=== PATIENT | male | born 1965 | race Caucasian/White ===

== ENCOUNTER → 2018-05-10 07:13 | Outpatient (CLI) | payer OTHER, SELFPAY ==
[2018-05-10 08:58] LABS: Add Manual Diff / Slide Review NO; Basophils Percent Auto 0.8 % (0-2); Eosinophils Percent Auto 4.8 % (2-4); Hemoglobin 14.8 g/dL (13.5-17.5); Lymphocytes Percent Auto 34.7 % (25-40); Mean Corpuscular HGB Conc 35.2 % (30-36); Mean Corpuscular Hemoglobin 34.3 PG (26-34); Mean Corpuscular Volume 97.7 fL (80-100); Monocytes Percent Auto 8.7 % (3-14); Neutrophils Absolute Auto 2800 /uL (3000-5900); Platelet Count 235 X10^3/uL (150-400); Red Cell Distribution Width 12.6 % (11.6-14.8); White Blood Cell Count 5.5 X10^3/uL (4.5-11.0)
[2018-05-10 09:44] LABS: Alanine Aminotransferase 39 IU/L (21-72); Albumin 4.1 g/dL (3.5-5.0); Albumin Globulin Ratio 1.6 (1.0-2.8); Alkaline Phosphatase 72 U/L (38-126); Aspartate Aminotransferase 26 IU/L (17-59); BUN Creatinine Ratio 15.7 (6-22); Bilirubin Total 0.6 mg/dL (0.2-1.3); Blood Urea Nitrogen 11 mg/dL (9-20); Calcium 9.1 mg/dL (8.4-10.2); Carbon Dioxide 29 mmol/L (22-32); Chloride 104 mmol/L (98-107); Cholesterol 199 mg/dL (140-199); Estimated Glomerular Filt Rate > 60.0 mL/min (>60); Globulin 2.5 g/dL (1.7-4.1); Glucose 95 mg/dL (70-100); HDL Cholesterol 39 mg/dL (40-60); HEMOLYSIS < 15 (0-50); LDL Cholesterol Calculated 110 mg/dL (<100); Potassium 4.5 mmol/L (3.4-5.1); Sodium 143 mmol/L (137-145); Total Protein 6.6 g/dL (6.3-8.2); Triglycerides 249 mg/dL (35-150)
[2018-05-10 10:06] LABS: TSH w/ Reflex to FT4 9.35 uIU/mL (0.47-4.68)
[2018-05-10 10:11] LABS: Prostate Specific Antigen 0.967 ng/mL (0.10-4.00)
[2018-05-10 10:31] LABS: Free T4, Direct Thyroxine 1.27 ng/dL (0.78-2.19)
== END ==
PROVIDERS: Family Provider Family Medicine; PCP Family Medicine; Visit Provider Family Medicine
DX: E03.9 Hypothyroidism, unspecified (principal); E78.5 Hyperlipidemia, unspecified; G40.909 Epilepsy, unspecified, not intractable, without status epilepticus; Z12.5 Encounter for screening for malignant neoplasm of prostate
CPT/HCPCS: 36415; 80053; 80061; 84153; 84439; 84443; 85025

== ENCOUNTER → 2019-09-25 08:22 | Outpatient (CLI) | payer OTHER, SELFPAY ==
[2019-09-25 08:57] LABS: Hematocrit 39.6 % (41-53); Hemoglobin 13.5 g/dL (13.5-17.5); Mean Corpuscular HGB Conc 34.2 % (30-36); Mean Corpuscular Hemoglobin 33.9 PG (26-34); Platelet Count 224 X10^3/uL (150-400); Red Blood Cell Count 3.99 X10^6/uL (4.5-5.9); Red Cell Distribution Width 12.4 % (11.6-14.8); White Blood Cell Count 4.2 X10^3/uL (4.5-11.0)
[2019-09-25 09:08] LABS: Alanine Aminotransferase 30 IU/L (<50); Albumin 4.4 g/dL (3.5-5.0); Albumin Globulin Ratio 1.7 (1.0-2.8); Alkaline Phosphatase 73 U/L (38-126); Aspartate Aminotransferase 30 IU/L (17-59); BUN Creatinine Ratio 18.6 (6-22); Bilirubin Total 0.4 mg/dL (0.2-1.3); Blood Urea Nitrogen 13 mg/dL (9-20); Calcium 9.3 mg/dL (8.4-10.2); Carbon Dioxide 27 mmol/L (22-32); Chloride 106 mmol/L (98-107); Cholesterol 216 mg/dL (140-199); Estimated Glomerular Filt Rate > 60.0 mL/min (>60); Globulin 2.6 g/dL (1.7-4.1); Glucose 106 mg/dL (70-100); HDL Cholesterol 44 mg/dL (40-60); HEMOLYSIS < 15 (0-50); LDL Cholesterol Calculated 152 mg/dL (<100); Potassium 4.3 mmol/L (3.4-5.1); Sodium 140 mmol/L (137-145); Triglycerides 101 mg/dL (35-150)
[2019-09-25 10:05] LABS: Free T4, Direct Thyroxine 0.89 ng/dL (0.78-2.19)
[2019-09-25 10:12] LABS: Neutrophils Absolute Manual 2058 /uL (3000-5900); Nucleated Red Blood Cells 1 #/Diff; RBC Morphology Normal Morphology; Total Cells Counted 100
== END ==
PROVIDERS: Family Provider Family Medicine; PCP Family Medicine; Referring Provider Family Medicine; Visit Provider Family Medicine
DX: E03.9 Hypothyroidism, unspecified (principal); G40.909 Epilepsy, unspecified, not intractable, without status epilepticus
CPT/HCPCS: 36415; 80053; 80061; 84439; 84443; 85025

== ENCOUNTER → 2020-01-14 11:04 | Outpatient (CLI) | payer OTHER, SELFPAY ==
--- NOTE | 2020-01-14 11:07 | DI.RAD.S_ITS ---
PROCEDURE: XR SHOULDER LT MIN 2V INDICATIONS: left shoulder impigment TECHNIQUE: 3 views of the shoulder were acquired. COMPARISON: [facility], , SHOULDER MINIMUM 2VIEW RIGHT, 07/02/2011, 13:08. FINDINGS: Bones: No fractures or dislocations. No suspicious bony lesions. Visualized ribs appear intact. Soft tissues: No suspicious soft tissue calcifications. IMPRESSION: No acute radiographic findings. No findings to suggest subluxation of the humerus. However, if further characterization is warranted, MRI is recommended. Dictated by: Glenna Palacios M.D. on 01/14/2020 at 12:09 Approved by: Glenna Palacios M.D. on 01/14/2020 at 12:09
== END ==
PROVIDERS: Family Provider Family Medicine; PCP Family Medicine; Referring Provider Family Medicine; Visit Provider Family Medicine
DX: M25.812 Other specified joint disorders, left shoulder (principal); M25.512 Pain in left shoulder
CPT/HCPCS: 73030

== ENCOUNTER → 2020-09-17 09:05 | Outpatient (CLI) | payer OTHER, SELFPAY ==
[2020-09-17 11:27] LABS: COVID19 -Nasal RAPID Negative (Negative)
== END ==
PROVIDERS: Family Provider Family Medicine; PCP Family Medicine; Visit Provider Specialist
DX: Z20.822 Contact with and (suspected) exposure to COVID-19 (principal)
CPT/HCPCS: 87635; C9803

== ENCOUNTER 2020-09-18 07:31 | Day surgery (SDC) | payer OTHER, SELFPAY ==
[2020-09-18] VITALS (11 sets, daily range): BP systolic 107–127; BP diastolic 58–81; PULSE 56–57; RESP 8–17; TEMP 36.3–36.7; O2SAT 94–97; BMI 30.1
--- NOTE | 2020-09-18 | PATH_ITS ---
[facility] Accession Number: [id number] . 01 Material submitted: . body - POLYP AT 50CM . 02 Diagnosis: Colon, Polyp at 50 cm, Biopsy: Hyperplastic polyp. [facility] 09/22/2020 1702 Local . 02 Electronically signed: . Sammie Wesley MD, Pathologist NPI- [id number] . 01 Gross description: . POLYP AT 50CM: Received in formalin is 1 fragment(s) of jc, soft tissue measuring 0.3 x 0.3 x 0.1 cm submitted entirely in 1 cassette(s) /QBJ 09/20/2020 0924 Local . 02 Pathologist provided ICD-10: K63.5 . 02 CPT . 884848 Performed at: 01 [facility] [address] [facility], [place], [place] [id number] MD Geovany Hogan MD Phone: [phone] Performed at: 02 [facility] [address] [place], [place] [id number] MD Sammie Wesley MD Phone: [phone]
[2020-09-18] MEDS: fentaNYL 250 MCG/5 ML INJ IV (08:20)
[2020-09-18] MEDS: MIDAZOLAM 5 MG/5 ML VIAL IV (08:21)
--- NOTE | 2020-09-18 08:24 | P.HP_ITS ---
History of Present Illness History of Present Illness Date Patient Seen: 09/18/20 Time Patient Seen: 08:25 Chief complaint: SD Narrative: Patient is a gentleman here for a screening colonoscopy. A colonoscopy about 8 years ago for rectal bleeding. No cause was found. He is here for screening examination. Patient History Medical History Chicken pox (~1973) Hypothyroidism Seizure Surgical History Anesthesia History of vasectomy Status post tonsillectomy and adenoidectomy Family & Social History Family History Father Cancer Heart disease Mother Carcinoma in situ, breast, ductal High cholesterol Social History: household members spouse Tobacco & Substance use: Smoking Status Never smoker alcohol intake never Substance Use Type does not use Meds Home Medications and Allergies Home Medications Medication Instructions Recorded Confirmed Type cetirizine 10 mg PO PRN #0 06/29/11 01/14/20 History albuterol sulfate 90 mcg/actuation 1 puff INHALATION Q4HP PRN #1 inh 09/26/19 01/14/20 Rx aerosol inhaler lamotrigine 100 mg tablet 200 mg PO BID #120 tab 06/06/20 09/18/20 Rx levothyroxine 125 mcg tablet 125 mcg PO DAILY #90 tab 08/11/20 09/18/20 Rx Allergies Allergy/AdvReac Type Severity Reaction Status Date / Time No Known Drug Allergies Allergy Verified 09/18/20 07:43 Review of Systems Review of Systems ROS: Yes All systems reviewed with the patient and are negative except as other cleary documented Exam Vital Signs (past 8 hours): - 09/18/20 07:47 Temperature 97.3 F L Pulse Rate 56 L Respiratory Rate 17 Blood Pressure 127/73 Pulse Oximetry 96 Oxygen Delivery Method Room Air Narrative Exam Narrative: Pleasant cooperative patient no apparent distress. Lungs are clear to auscultation. No rales or rhonchi. Heart regular rate and rhythm no murmur gallop. Abdomen is soft nontender without mass. No obvious hernias. Patient is alert and oriented x3. Assessment & Plan Assessment & Plan narrative: The patient for a screening colonoscopy. I have discussed the procedure with them. Risks of bleeding, perforation which would necessitate major operation, failure to find remove all lesions, the potential tattoo were all discussed. All questions were answered. They wished to proceed.
--- NOTE | 2020-09-18 08:27 | PM.PREOP ---
Pre-operative Note COVID-19 COVID-19 status: Negative Result date/Date tested (Pos, Neg/Pending): 09/17/20 Interval Note History & Physical reviewed/Exam performed by Physician: Yes Changes to H&P: No ASA Class (for procedural sedation): II
[2020-09-18] MEDS: LACTATED RINGERS 1,000 ML 200 ML IV (08:33)
--- NOTE | 2020-09-18 09:45 | PM.OP.ENDO ---
Operative Date/Time/Diagnoses Date of procedure: 09/18/20 Time of procedure: 08:40 Pre-op diagnosis: Screening exam. Last exam 8 years ago. Post-op diagnosis: same (Small polyp at 50 cm from the anal verge) Procedure & Clinicians Study performed: Colonoscopy with cold biopsy Same procedure as scheduled: Yes Indications: Screening Surgeon: Yoshi Samano Procedure Notes SCOAP/Timeout: Performed Procedure in detail: The patient was placed in the left lateral decubitus position and underwent IV sedation directed by the surgeon consisting of fentanyl and Versed. Digital exam was unremarkable. The scope was inserted and advanced through the rectum into the sigmoid, descending, transverse, and ascending colon. Pressure was applied a stiffener inserted in order to reach the cecum. The cecum was reached identified by the ileocecal valve and the appendiceal opening. The scope was gradually brought out. One Polyp was found at 50 cm from the anal verge. This was biopsied and removed.. The scope ultimately was retroflexed in the rectum. The appearance was normal however as I brought the scope through the anal verge there was some evidence of hemorrhoids with minor inflammation.. The scope was removed and the patient tolerated the procedure well. The prep was very good Scope withdrawal time: Almost 11 minutes Sedation minutes: 22 Findings: internal hemorrhoids and polyp (One tiny polyp at 50 cm from the anal verge) Specimen(s): other (Polyp) Complications: none Post-procedure Recommendations: Colonscopy in 5 years (If the polyp removed is not adenomatous than 10 years would be more appropriate. We will notify you) Follow up: as needed Disposition: PACU
== END 2020-09-18 09:58 | disposition home or self-care (01) ==
PROVIDERS: Family Provider Family Medicine; PCP Family Medicine; Referring Provider Family Medicine; Visit Provider Specialist
PROC: 0DJD8ZZ Inspection of Lower Intestinal Tract, Via Natural or Artificial Opening Endoscopic (ICD-10-PCS; CPT 45378; principal; 2020-09-18 08:30)
DX: Z12.11 Encounter for screening for malignant neoplasm of colon (principal); K64.0 First degree hemorrhoids; E03.9 Hypothyroidism, unspecified; K63.5 Polyp of colon
CPT/HCPCS: 45380; 99152; J2250; J3010

== ENCOUNTER → 2021-03-20 07:04 | Outpatient (CLI) | payer OTHER, SELFPAY ==
[2021-03-20 09:16] LABS: Add Manual Diff / Slide Review NO; Basophils Absolute Auto 0 /uL (0-100); Basophils Percent Auto 0.8 % (0-2); Eosinophils Absolute Auto 200 /uL (0-450); Eosinophils Percent Auto 4.1 % (2-4); Hemoglobin 13.6 g/dL (13.5-17.5); Lymphocytes Absolute Auto 1500 /uL (1100-4500); Lymphocytes Percent Auto 28.9 % (25-40); Mean Corpuscular HGB Conc 33.9 % (30-36); Mean Corpuscular Hemoglobin 33.3 PG (26-34); Mean Corpuscular Volume 98.3 fL (80-100); Monocytes Absolute Auto 400 /uL (0-900); Neutrophils Absolute Auto 2900 /uL (1500-7000); Neutrophils Percent Auto 58.2 % (50-75); Platelet Count 211 X10^3/uL (150-400); Red Blood Cell Count 4.07 X10^6/uL (4.5-5.9); Red Cell Distribution Width 13.2 % (11.6-14.8); White Blood Cell Count 5.1 X10^3/uL (4.5-11.0)
[2021-03-20 09:32] LABS: Alanine Aminotransferase 31 IU/L (<50); Albumin 4.2 g/dL (3.5-5.0); Albumin Globulin Ratio 1.6 (1.0-2.8); Alkaline Phosphatase 78 U/L (38-126); Aspartate Aminotransferase 37 IU/L (17-59); BUN Creatinine Ratio 18.5 (6-22); Bilirubin Total 0.6 mg/dL (0.2-1.3); Blood Urea Nitrogen 10 mg/dL (9-20); Calcium 9.2 mg/dL (8.4-10.2); Carbon Dioxide 26 mmol/L (22-32); Chloride 106 mmol/L (98-107); Estimated Glomerular Filt Rate > 60.0 mL/min (>60); Globulin 2.6 g/dL (1.7-4.1); Glucose 97 mg/dL (70-100); HEMOLYSIS < 15 (0-50); Potassium 4.1 mmol/L (3.4-5.1); Sodium 139 mmol/L (137-145); Total Protein 6.8 g/dL (6.3-8.2)
[2021-03-20 10:00] LABS: Prostate Specific Antigen 0.917 ng/mL (0.10-4.00)
[2021-03-20 10:04] LABS: TSH w/ Reflex to FT4 7.12 uIU/mL (0.47-4.68)
[2021-03-20 10:32] LABS: Free T4, Direct Thyroxine 1.15 ng/dL (0.78-2.19)
== END ==
PROVIDERS: Family Provider Family Medicine; PCP Family Medicine; Referring Provider Family Medicine; Visit Provider Family Medicine
DX: E03.9 Hypothyroidism, unspecified (principal); G40.909 Epilepsy, unspecified, not intractable, without status epilepticus
CPT/HCPCS: 36415; 80053; 84153; 84439; 84443; 85025

== ENCOUNTER → 2022-03-30 12:25 | Outpatient (CLI) | payer OTHER, SELFPAY | PROVIDERS: Family Provider Family Medicine; PCP Family Medicine; Visit Provider Physician Assistant | DX: Z12.5 Encounter for screening for malignant neoplasm of prostate (principal) | CPT/HCPCS: G0103 ==

== ENCOUNTER → 2022-04-01 10:35 | Outpatient (CLI) | payer OTHER, SELFPAY ==
[2022-04-01 11:42] LABS: Add Manual Diff / Slide Review NO; Basophils Absolute Auto 0 /uL (0-100); Basophils Percent Auto 0.8 % (0-2); Eosinophils Absolute Auto 100 /uL (0-450); Eosinophils Percent Auto 3.1 % (2-4); Hematocrit 38.2 % (41-53); Hemoglobin 13.4 g/dL (13.5-17.5); Lymphocytes Absolute Auto 1300 /uL (1100-4500); Lymphocytes Percent Auto 28.8 % (25-40); Mean Corpuscular Hemoglobin 33.6 PG (26-34); Monocytes Absolute Auto 400 /uL (0-900); Monocytes Percent Auto 9.3 % (3-14); Neutrophils Absolute Auto 2600 /uL (1500-7000); Platelet Count 235 X10^3/uL (150-400); Red Blood Cell Count 3.98 X10^6/uL (4.5-5.9); Red Cell Distribution Width 12.8 % (11.6-14.8); White Blood Cell Count 4.4 X10^3/uL (4.5-11.0)
[2022-04-01 12:10] LABS: Alanine Aminotransferase 24 IU/L (<50); Albumin 4.3 g/dL (3.5-5.0); Albumin Globulin Ratio 1.8 (1.0-2.8); Alkaline Phosphatase 75 U/L (38-126); Aspartate Aminotransferase 30 IU/L (17-59); Bilirubin Total 0.4 mg/dL (0.2-1.3); Blood Urea Nitrogen 16 mg/dL (9-20); Calcium 9.2 mg/dL (8.4-10.2); Carbon Dioxide 29 mmol/L (22-32); Chloride 104 mmol/L (98-107); Estimated Glomerular Filt Rate > 60 mL/min (>60); Globulin 2.4 g/dL (1.7-4.1); Glucose 107 mg/dL (70-100); HEMOLYSIS < 15 (0-50); Potassium 4.6 mmol/L (3.4-5.1); Sodium 138 mmol/L (137-145); Total Protein 6.7 g/dL (6.3-8.2)
[2022-04-01 12:41] LABS: TSH w/ Reflex to FT4 5.07 uIU/mL (0.47-4.68)
[2022-04-01 13:22] LABS: Free T4, Direct Thyroxine 1.51 ng/dL (0.78-2.19)
== END ==
PROVIDERS: Family Provider Family Medicine; PCP Family Medicine; Referring Provider Physician Assistant; Visit Provider Physician Assistant
DX: E03.9 Hypothyroidism, unspecified (principal); G40.909 Epilepsy, unspecified, not intractable, without status epilepticus
CPT/HCPCS: 36415; 80053; 84439; 84443; 85025

== ENCOUNTER → 2023-06-29 08:13 | Outpatient (CLI) | payer OTHER, SELFPAY ==
[2023-06-29 08:59] LABS: Add Manual Diff / Slide Review NO; Basophils Absolute Auto 0 /uL (0-100); Basophils Percent Auto 0.5 % (0-2); Eosinophils Absolute Auto 200 /uL (0-450); Eosinophils Percent Auto 3.6 % (2-4); Hematocrit 39.5 % (41-53); Hemoglobin 13.5 g/dL (13.5-17.5); Lymphocytes Absolute Auto 1300 /uL (1100-4500); Lymphocytes Percent Auto 29.2 % (25-40); Mean Corpuscular HGB Conc 34.3 % (30-36); Mean Corpuscular Volume 96.3 fL (80-100); Monocytes Absolute Auto 400 /uL (0-900); Monocytes Percent Auto 8.4 % (3-14); Neutrophils Absolute Auto 2500 /uL (1500-7000); Neutrophils Percent Auto 58.3 % (50-75); Platelet Count 232 X10^3/uL (150-400); Red Cell Distribution Width 13.9 % (11.6-14.8); White Blood Cell Count 4.3 X10^3/uL (4.5-11.0)
[2023-06-29 09:29] LABS: Alanine Aminotransferase 32 IU/L (<50); Albumin 4.4 g/dL (3.5-5.0); Albumin Globulin Ratio 1.5 (1.0-2.8); Alkaline Phosphatase 76 U/L (38-126); Aspartate Aminotransferase 37 IU/L (17-59); BUN Creatinine Ratio 17.1 (6-22); Bilirubin Total 0.7 mg/dL (0.2-1.3); Blood Urea Nitrogen 12 mg/dL (9-20); Calcium 9.6 mg/dL (8.4-10.2); Carbon Dioxide 28 mmol/L (22-32); Chloride 102 mmol/L (98-107); Cholesterol 239 mg/dL (140-199); Estimated Glomerular Filt Rate > 60 mL/min (>60); Globulin 2.9 g/dL (1.7-4.1); Glucose 104 mg/dL (70-100); HDL Cholesterol 43 mg/dL (40-60); HEMOLYSIS < 15 (0-50); LDL Cholesterol Calculated 176 mg/dL (<100); Potassium 4.4 mmol/L (3.4-5.1); Sodium 137 mmol/L (137-145); Total Protein 7.3 g/dL (6.3-8.2); Triglycerides 101 mg/dL (35-150)
[2023-06-29 10:21] LABS: Free T4, Direct Thyroxine 1.23 ng/dL (0.78-2.19)
== END ==
PROVIDERS: Family Provider Family Medicine; PCP Family Medicine; Referring Provider Physician Assistant; Visit Provider Physician Assistant
DX: G40.909 Epilepsy, unspecified, not intractable, without status epilepticus (principal); E03.9 Hypothyroidism, unspecified; Z12.5 Encounter for screening for malignant neoplasm of prostate; E78.5 Hyperlipidemia, unspecified
CPT/HCPCS: 36415; 80053; 80061; 84439; 84443; 85025

== ENCOUNTER 2023-08-01 06:41 | Day surgery (SDC) | payer OTHER, SELFPAY ==
[2023-08-01 07:10] VITALS: BMI 30.1
[2023-08-01 07:18] VITALS: BP 121/68; PULSE 68; RESP 17; TEMP 36.4; O2SAT 95
[2023-08-01] MEDS: LACTATED RINGERS 1,000 ML 42 ML IV (07:21)
--- NOTE | 2023-08-01 07:43 | P.HP_ITS ---
History of Present Illness History of Present Illness Date Patient Seen: 08/01/23 Time Patient Seen: 07:43 [place] [facility] [place]: H/o colon polyps. Last scope 5 years ago, no new symptoms. No family history of significance. [facility] Medical History Seizure Hypothyroidism Chicken pox (~1973) Surgical History Anesthesia History of vasectomy Status post tonsillectomy and adenoidectomy Family History Father Cancer Heart disease Mother Carcinoma in situ, breast, ductal High cholesterol Social History marital status: household members: spouse Smoking Status: Never smoker alcohol intake: never substance use type: does not use Meds Home Medications and Allergies Home Medications Medication Instructions Recorded Confirmed Type cetirizine 10 mg tablet 10 mg PO PRN ##0 06/29/11 08/01/23 History albuterol sulfate 90 mcg/actuation 1 puff inhalation Q4HP PRN 05/07/21 08/01/23 Rx aerosol inhaler (Proventil HFA) bronchospasm #1 inh lamotrigine 200 mg tablet 200 mg PO BID #180 tabs 10/27/21 08/01/23 Rx levothyroxine 175 mcg tablet 175 mcg PO BEDTIME #45 tabs 06/30/23 08/01/23 Rx Allergies Allergy/AdvReac Type Severity Reaction Status Date / Time No Known Drug Allergies Allergy Verified 08/01/23 07:07 Review of Systems Review of Systems ROS: Yes All systems reviewed with the patient and are negative except as otherwise documented Exam Vital Signs (past 8 hours): - 08/01/23 07:18 Temperature 97.5 F L Pulse Rate 68 Respiratory Rate 17 Blood Pressure 121/68 Pulse Oximetry 95 Oxygen Delivery Method Room Air Oxygen Delivery Method Room Air Const General: cooperative and healthy appearing [facility] Head: normal to inspection, normocephalic and atraumatic Ears: hearing grossly normal bilaterally Eyes General: appearance normal, both eyes and all related structures Neck Neck: normal visual inspection and full ROM Chest Chest: normal inspection of the chest Resp Effort & Inspection: normal respiratory effort and able to speak in complete sentences Cardio Rate: regular rate Rhythm: regular rhythm GI Inspection: normal to inspection Palpation: soft Skin General: elasticity normal and turgor normal Neuro General: patient alert, patient awake and patient oriented x3 Cognition: normal cognition Psych Appearance: grossly normal Mental Status: mental status grossly normal Affect: normal affect Judgment: judgment good Assessment & Plan Assessment & Plan narrative: hx of colon polyps colonoscopy with anesthesia Time Spent With Patient Time with patient: less than 30 minutes
--- NOTE | 2023-08-01 07:49 | PM.OP.COLON ---
Operative Date/Time/Diagnoses Date of procedure: 08/01/23 Time of procedure: 08:03 Pre-op diagnosis: h/o colon polyps Post-op diagnosis: same Procedure & Clinicians Study performed: Colonoscopy Same procedure as scheduled: Yes Indications: History of colon polyps Surgeon: Celia Ryan Procedure Notes Procedure in detail: Preop diagnosis: History of colon polyps Postop diagnosis: Same Operative procedure: Colonoscopy with anesthesia Surgeon: Romana Ryan MD Findings: Normal colonoscopy. No polyps no masses. Procedure: Patient placed in a lateral position. Rectal exam performed showing normal tone no masses. Colonoscope inserted into the rectum and advanced to ileocecal valve with minimal difficulty. Insufflation extraction of the scope and the above findings. Retroflex was included in the rectum and the cecum. Impression: No polyps identified. Plan: Repeat colonoscopy in 5 years Specimen(s): none sent Complications: none Post-procedure Recommendations: Colonoscopy in 5 years Follow up: as needed Disposition: PACU
[2023-08-01 08:07] VITALS: BP 113/70; PULSE 57; RESP 22; TEMP 36.1; O2SAT 95
[2023-08-01 08:12] VITALS: BP 115/66; PULSE 55; RESP 14; O2SAT 98
[2023-08-01 08:16] VITALS: BP 106/69; PULSE 54; RESP 16; TEMP 36; O2SAT 98
[2023-08-01 08:18] VITALS: BP 109/60; PULSE 53; RESP 24; O2SAT 97
== END 2023-08-01 08:33 | disposition home or self-care (01) ==
PROVIDERS: Family Provider Family Medicine; PCP Family Medicine; Referring Provider Surgery; Visit Provider Surgery
PROC: 0DJD8ZZ Inspection of Lower Intestinal Tract, Via Natural or Artificial Opening Endoscopic (ICD-10-PCS; CPT 45378; principal; 2023-08-01 07:45)
DX: Z12.11 Encounter for screening for malignant neoplasm of colon (principal); Z86.010 Personal history of colon polyps
CPT/HCPCS: 45378; J2704

== ENCOUNTER → 2023-09-09 07:31 | Outpatient (CLI) | payer OTHER, SELFPAY ==
[2023-09-09 09:00] LABS: Cholesterol 257 mg/dL (140-199); HDL Cholesterol 43 mg/dL (40-60); LDL Cholesterol Calculated 191 mg/dL (<100); Triglycerides 116 mg/dL (35-150)
[2023-09-09 09:28] LABS: TSH w/ Reflex to FT4 8.64 uIU/mL (0.47-4.68)
[2023-09-09 10:15] LABS: Free T4, Direct Thyroxine 1.45 ng/dL (0.78-2.19)
== END ==
LOC: LAB 07:32
PROVIDERS: Family Provider Family Medicine; PCP Family Medicine; Referring Provider Physician Assistant; Visit Provider Physician Assistant
DX: E03.9 Hypothyroidism, unspecified (principal); R79.89 Other specified abnormal findings of blood chemistry; E78.5 Hyperlipidemia, unspecified
CPT/HCPCS: 36415; 80061; 84439; 84443

== ENCOUNTER → 2023-10-19 11:58 | Outpatient (CLI) | payer OTHER, SELFPAY ==
--- NOTE | 2023-10-19 11:59 | DI.RAD.S_ITS ---
PROCEDURE: XR SHOULDER LT MIN 2V INDICATIONS: Left shoulder pain intermittent/chronic - suspect OA TECHNIQUE: 3 views of the shoulder were acquired. COMPARISON: [facility], [facility], XR SHOULDER LT MIN 2V, 01/14/2020, 11:24. FINDINGS: Bones: No fractures or dislocations. No suspicious bony lesions. Visualized ribs appear intact. [id number] acromioclavicular degenerative narrowing. Soft tissues: No suspicious soft tissue calcifications. IMPRESSION: Stable interval exam demonstrating no acute osseous abnormality. [id number] chromium clavicular degenerative narrowing. Dictated by: Fabi Hackett M.D. on 10/19/2023 at 15:15 Approved by: Fabi Hackett M.D. on 10/19/2023 at 15:16
== END ==
PROVIDERS: Family Provider Family Medicine; PCP Family Medicine; Referring Provider Physician Assistant; Visit Provider Physician Assistant
DX: M25.512 Pain in left shoulder (principal)
CPT/HCPCS: 73030

== ENCOUNTER → 2023-12-14 08:07 | Outpatient (CLI) | payer OTHER, SELFPAY ==
[2023-12-14 09:07] LABS: Cholesterol 222 mg/dL (140-199); HDL Cholesterol 37 mg/dL (40-60); LDL Cholesterol Calculated 153 mg/dL (<100); Triglycerides 162 mg/dL (35-150)
[2023-12-14 09:30] LABS: TSH w/ Reflex to FT4 6.93 uIU/mL (0.47-4.68)
[2023-12-14 09:55] LABS: Free T4, Direct Thyroxine 1.51 ng/dL (0.78-2.19)
== END ==
PROVIDERS: Family Provider Family Medicine; PCP Family Medicine; Referring Provider Physician Assistant; Visit Provider Physician Assistant
DX: E03.9 Hypothyroidism, unspecified (principal); E78.2 Mixed hyperlipidemia
CPT/HCPCS: 36415; 80061; 84439; 84443

== ENCOUNTER → 2024-02-06 07:14 | Outpatient (CLI) | payer OTHER, SELFPAY ==
[2024-02-06 08:22] LABS: Cholesterol 150 mg/dL (140-199); HDL Cholesterol 42 mg/dL (40-60); LDL Cholesterol Calculated 87 mg/dL (<100); Triglycerides 104 mg/dL (35-150)
[2024-02-06 08:51] LABS: TSH w/ Reflex to FT4 2.06 uIU/mL (0.47-4.68)
== END ==
PROVIDERS: Family Provider Family Medicine; PCP Family Medicine; Referring Provider Physician Assistant; Visit Provider Physician Assistant
DX: E03.9 Hypothyroidism, unspecified (principal); R79.89 Other specified abnormal findings of blood chemistry; E78.2 Mixed hyperlipidemia
CPT/HCPCS: 36415; 80061; 84443

== ENCOUNTER → 2024-07-27 08:27 | Outpatient (CLI) | payer OTHER, SELFPAY ==
[2024-07-27 08:57] LABS: Add Manual Diff / Slide Review NO; Basophils Absolute Auto 0 /uL (0-100); Basophils Percent Auto 0.4 % (0-2); Eosinophils Absolute Auto 300 /uL (0-450); Eosinophils Percent Auto 3.5 % (2-4); Hematocrit 42.4 % (41-53); Hemoglobin 14.4 g/dL (13.5-17.5); Lymphocytes Absolute Auto 2000 /uL (1100-4500); Lymphocytes Percent Auto 27.4 % (25-40); Mean Corpuscular Volume 97.2 fL (80-100); Monocytes Absolute Auto 600 /uL (0-900); Monocytes Percent Auto 8.3 % (3-14); Neutrophils Absolute Auto 4300 /uL (1500-7000); Neutrophils Percent Auto 60.4 % (50-75); Platelet Count 312 X10^3/uL (150-400); Red Blood Cell Count 4.36 X10^6/uL (4.5-5.9); Red Cell Distribution Width 13.2 % (11.6-14.8); White Blood Cell Count 7.2 X10^3/uL (4.5-11.0)
[2024-07-27 09:21] LABS: Alanine Aminotransferase 36 IU/L (<50); Albumin 4.4 g/dL (3.5-5.0); Albumin Globulin Ratio 1.5 (1.0-2.8); Alkaline Phosphatase 103 U/L (38-126); Aspartate Aminotransferase 35 IU/L (17-59); BUN Creatinine Ratio 20.8 (6-22); Bilirubin Total 0.7 mg/dL (0.2-1.3); Blood Urea Nitrogen 15 mg/dL (9-20); Calcium 9.8 mg/dL (8.4-10.2); Carbon Dioxide 28 mmol/L (22-32); Chloride 102 mmol/L (98-107); Cholesterol 180 mg/dL (140-199); Estimated Glomerular Filt Rate > 60 mL/min (>60); Glucose 103 mg/dL (70-100); HDL Cholesterol 49 mg/dL (40-60); HEMOLYSIS < 15 (0-50); LDL Cholesterol Calculated 109 mg/dL (<100); Potassium 4.8 mmol/L (3.4-5.1); Sodium 136 mmol/L (137-145); Total Protein 7.4 g/dL (6.3-8.2); Triglycerides 111 mg/dL (35-150)
[2024-07-27 09:49] LABS: TSH w/ Reflex to FT4 4.77 uIU/mL (0.47-4.68)
[2024-07-27 10:15] LABS: Free T4, Direct Thyroxine 1.57 ng/dL (0.78-2.19)
== END ==
PROVIDERS: Family Provider Family Medicine; PCP Family Medicine; Referring Provider Physician Assistant; Visit Provider Physician Assistant
DX: E78.2 Mixed hyperlipidemia (principal); G40.909 Epilepsy, unspecified, not intractable, without status epilepticus; E03.9 Hypothyroidism, unspecified
CPT/HCPCS: 36415; 80053; 80061; 84439; 84443; 85025

== ENCOUNTER → 2025-05-13 10:54 | Outpatient (CLI) | payer OTHER, SELFPAY ==
--- NOTE | 2025-05-13 10:55 | DI.RAD.S_ITS ---
PROCEDURE: XR FINGER LT MIN 2V INDICATIONS: thumb pa9in TECHNIQUE: AP hand, 2 views of the left 1st finger(s) acquired. COMPARISON: None. FINDINGS: Bones: No fractures or dislocations. No suspicious bony lesions. Mild 1st CMC joint space loss and slight spur formation. Minor spurring along the lateral 1st IP joint. Soft tissues: No suspicious soft tissue calcifications. IMPRESSION: No acute fracture. Minor osteoarthritic change. Dictated by: Cary Resendez M.D. on 05/13/2025 at 17:56 Approved by: Cary Resendez M.D. on 05/13/2025 at 17:57
== END ==
PROVIDERS: Family Provider Family Medicine; PCP Family Medicine; Referring Provider Family Medicine; Visit Provider Family Medicine
DX: M79.646 Pain in unspecified finger(s) (principal); M19.042 Primary osteoarthritis, left hand
CPT/HCPCS: 73140